=== PATIENT | male | born 1990 | race Caucasian/White ===

== ENCOUNTER 2017-09-30 18:27 | Emergency (ER) | payer OTHER ==
[2017-09-30] MEDS ORDERED: ValACYclovir (*) 1 GM TAB PO ONE (21:13)
[2017-09-30] MEDS ORDERED: Fluorescein Sodium TOPICAL* 1 MG TEST OPHTHALMIC ONE (21:14)
[2017-09-30] MEDS ORDERED: Tetracaine 0.5% OPTH.SOL 4 ML* 1 DROP BTL RIGHT EYE ONE (21:14)
[2017-09-30] MEDS ORDERED: Artificial Tears* 15 ML BTL RIGHT EYE ONE (21:15)
[2017-09-30] MEDS ORDERED: predniSONE TAB* 20 MG PO ONE (21:55)
[2017-09-30 22:00] LABS: ABS Basophils 0.1 10^3/ul (0-0.2); ABS Eosinophils 0.2 10^3/ul (0-0.6); ABS Lymphocytes 3.7 10^3/ul (1.0-4.8); ABS Monocytes 0.7 10^3/ul (0-0.8); ABS Neutrophils 4.2 10^3/ul (1.5-7.7); ABS Nucleated RBC 0 10^3/ul; Eosinophil % 2.4 % (0-6); Hematocrit 44 % (42-52); Hemoglobin 15.4 g/dl (14.0-18.0); Lymphocyte % 41.7 % (25-47); Mean Corpuscular HGB Conc 35 g/dl (31-36); Mean Corpuscular Hemoglobin 31 pg (27-31); Mean Corpuscular Volume 90 fL (80-94); Mean Platelet Volume 9 um3 (7.4-10.4); Nucleated Red Blood Cells % 0; Platelet Count 237 10^3/ul (150-450); Red Blood Count 4.92 10^6/ul (4.0-5.4); Red Cell Distribution Width 13 % (10.5-15); White Blood Count 8.9 10^3/ul (3.5-10.8)
[2017-09-30 22:11] LABS: EGFR Non-African American 92.8 (>60)
[2017-09-30 22:45] VITALS: BP 135/85
--- NOTE | 2017-09-30 23:39 | ED ---
Jim James Tecjoon, scribed for Tunde Champion MD on 09/30/17 at 2119 . Neurological HPI - HPI Summary HPI Summary: This patient is a 26 year old male presenting to [facility] accompanied by family with a chief complaint of right sided facial numbness since yesterday. Patient has right sided facial palsy, but has no other focal neurological deficits. Patient states that he has no pain. Symptoms aggravated by nothing. Symptoms alleviated by nothing. Patient additionally reports blurry vision in right eye, cough. Patient states that he looked up his symptoms and is worried about a stroke. - History of Current Complaint Chief Complaint: EDNeurologicalDeficit Stated Complaint: RT SIDE NUMBNESS Hx Obtained From: Patient Onset/Duration: Gradual Onset, Started days ago - 2, Still Present Timing: Constant Current Severity: Moderate Neurological Deficit Location: Facial - right sided Pain Intensity: 0 Pain Scale Used: 0-10 Numeric Character: Other: - cough, blurry vision in right eye - Allergy/Home Medications Allergies/Adverse Reactions: Allergies Allergy/AdvReac Type Severity Reaction Status Date / Time MS Codeine [Codeine] Allergy Abdominal Verified 12/17/16 14:10 Pain PMH/Surg Hx/FS Hx/Imm Hx Previously Healthy: Yes Endocrine/Hematology History: Denies: Hx Diabetes Cardiovascular History: Denies: Hx Hypertension, Hx Pacemaker/ICD History: Denies: Hx Renal Disease Sensory History: Denies: Hx Hearing Aid Psychiatric History: Denies: Hx Panic Disorder - Surgical History Surgery Procedure, Year, and Place: left knee REPAIR 2006 Infectious Disease History: No Infectious Disease History: Denies: Traveled Outside the [place] in Last 30 Days - Family History Known Family History: Negative: Hypertension - Social History Occupation: Employed Full-time Lives: With Family Alcohol Use: Occasionally Hx Substance Use: No Substance Use Type: Reports: None Hx Tobacco Use: Yes Smoking Status (MU): Light Every Day Tobacco Smoker Review of Systems Negative: Fever Positive: Blurred Vision Positive: Cough Neurological: Other - right sided facial weakness/numbness All Other Systems Reviewed And Are Negative: Yes Physical Exam - Summary Physical Exam Summary: Appearance: Well-appearing, Well-nourished Skin: Warm Eyes: No evidence of corneal abrasion or pseudodendritic appearance ENT: Normal Neck: Supple, nontender Respiratory: Clear to auscultation Cardiovascular: Normal S1, S2. No murmurs. Normal distal pulses in tibial and radial bilaterally. Abdomen: Soft, nontender Musculoskeletal: Normal, Strength/ROM Intact Neurological: A&Ox3. Paralysis of both upper and lower face, including forehead , eyelid, and mouth. No sensory abnormalities. No aphasia, no other obvious focal neuro deficits. Psychiatric: Normal Triage Information Reviewed: Yes Vital Signs On Initial Exam: Initial Vitals Temp Pulse Resp BP Pulse Ox 98 F 91 18 144/86 98 09/30/17 18:29 09/30/17 18:29 09/30/17 18:29 09/30/17 18:29 09/30/17 18:29 Vital Signs Reviewed: Yes Diagnostics - Vital Signs Vital Signs Temp Pulse Resp BP Pulse Ox 09/30/17 20:07 98.3 F 72 14 126/72 98 09/30/17 18:29 98 F 91 18 144/86 98 - Laboratory Lab Results: Lab Results 09/30/17 09/30/17 Range/Units 21:45 21:45 WBC 8.9 (3.5-10.8) 10^3/ul RBC 4.92 (4.0-5.4) 10^6/ul Hgb 15.4 (14.0-18.0) g/dl Hct 44 (42-52) % MCV 90 (80-94) fL MCH 31 (27-31) pg MCHC 35 (31-36) g/dl RDW 13 (10.5-15) % Plt Count 237 (150-450) 10^3/ul MPV 9 (7.4-10.4) um3 Neut % (Auto) 47.5 (38-83) % Lymph % (Auto) 41.7 (25-47) % [place] % (Auto) 7.8 (1-9) % Eos % (Auto) 2.4 (0-6) % Baso % (Auto) 0.6 (0-2) % Absolute Neuts (auto) 4.2 (1.5-7.7) 10^3/ul Absolute Lymphs (auto) 3.7 (1.0-4.8) 10^3/ul Absolute Monos (auto) 0.7 (0-0.8) 10^3/ul Absolute Eos (auto) 0.2 (0-0.6) 10^3/ul Absolute Basos (auto) 0.1 (0-0.2) 10^3/ul Absolute Nucleated RBC 0 10^3/ul Nucleated RBC % 0 Sodium 139 (133-145) mmol/L Potassium 4.0 (3.5-5.0) mmol/L Chloride 106 (101-111) mmol/L Carbon Dioxide 29 (22-32) mmol/L Anion Gap 4 (2-11) mmol/L BUN 17 (6-24) mg/dL Creatinine 0.97 (0.67-1.17) mg/dL Est GFR ( Amer) 119.4 (>60) Est GFR (Non-Af Amer) 92.8 (>60) BUN/Creatinine Ratio 17.5 (8-20) Glucose 100 (70-100) mg/dL Calcium 9.5 (8.6-10.3) mg/dL Total Bilirubin 0.30 (0.2-1.0) mg/dL AST 15 (13-39) U/L ALT 17 (7-52) U/L Alkaline Phosphatase 60 (34-104) U/L Total Protein 6.8 (6.4-8.9) g/dL Albumin 4.5 (3.2-5.2) g/dL Globulin 2.3 (2-4) g/dL Albumin/Globulin Ratio 2.0 (1-3) Result Diagrams: 09/30/17 21:45 09/30/17 21:45 Lab Statement: Any lab studies that have been ordered have been reviewed, and results considered in the medical decision making process. - EKG 2123 Cardiac Rate: NL EKG Rhythm: Sinus Rhythm EKG Interpretation: short IL(121), presence of delta wave in multiple leads consistent with WPW Re-Evaluation - Re-Evaluation First Eval Re-Evaluation Time: 22:08 Comment: We discussed EKG results with patient and informed him about WPW and its implications. Fluorescein test was performed and found no evidence of corneal abrasion. Course/Dx - Course Assessment/Plan: I had an extensive conversaton w patient about both his treatment for ibarra's and incidental finding of WPW on ekg. pt agrees to take meds as directed and to fu with plasterer helper promtly. Also instructed to return immediately for any wosening symptoms such as syncope, dizziness, chest pain, palpitations, or diaphoresis. Pt and family agree to and understands dc instructions. Also instructed to fu with neurologist immdidately if he notices no improvement in facial paralysis sxs within 1-2 days - Diagnoses Provider Diagnoses: Ibarra's palsy, WPW (Jugkl-Honbrduyj-Cidyv syndrome) - Physician Notifications Discussed Care Of Patient With: Kurtis Duarte Discharge - Discharge Plan Condition: Stable Disposition: HOME Prescriptions: predniSONE TAB* [Deltasone TAB*] 60 mg PO DAILY 7 Days #21 tab predniSONE TAB* [Deltasone TAB*] 40 mg PO DAILY 4 Days #6 tab ValACYclovir (*) [Valtrex 1 GM(*)] 1 gm PO TID #28 tab Patient Education Materials: Ibarra Palsy (ED), Qsxdt-Wquwesjxy-Vgmiw Syndrome ( ED) Forms: *Work Release Referrals: Noah Solorio MD [Primary Care Provider] - Kurtis Duarte MD [Medical Doctor] - Josselin Reed MD [Medical Doctor] - Additional Instructions: PLEASE MAKE AN APPOINTMENT FIRST THING IN THE MORNING TO BE SEEN BY A NEUROLOGIST WITHIN 2-3 DAYS IF NO IMPROVEMENT IN 48 HOURS PLEASE KEEP RIGHT EYE LUBRICATED AT ALL TIMES AND CLOSED WITH EYE PATCH DURING THE DAY PLEASE MAKE AN APPOINTMENT TO SEE A DEMO EVENT SPECIALIST WITHIN 1-3 DAYS PLEASE RETURN IMMEDIATELY TO THE ER IF YOU HAVE ANY WORSENING OR CONCERNING SYMPTOMS OR IF YOU HAVE ANY EPISODES OF PASSING OUT PLEASE MAKE AN APPOINTMENT TO BE SEEN BY YOUR PRIMARY CARE DOCTOR WITHIN 1 WEEK The documentation as recorded by the Jim hobson Tecjoon accurately reflects the service I personally performed and the decisions made by me, Tunde Champion MD.
== END 2017-09-30 22:44 | disposition home or self-care (01) ==
LOC: ED 18:27
DX: G51.0 Bell's palsy (principal); I45.6 Pre-excitation syndrome; Z88.5 Allergy status to narcotic agent
CPT/HCPCS: 36415; 80053; 85025; 86618; 93005; 99283; A9270-GY; J7512

== ENCOUNTER 2019-07-08 05:38 | Inpatient (IN) | payer OTHER ==
--- NOTE | 2019-07-08 06:17 | ED ---
Psychiatric Complaint - HPI Summary HPI Summary: This patient is a 28 year old M presenting to ED with a chief complaint of suicidal ideation since three days ago. Patient denies ever having SI before, but he has felt depressed before. He does not see anyone for his depression. Patient denies any medical history. Patient reports smoking tobacco and using alcohol, but he has not drank alcohol in the past 24 hours. Patient is a marijuana user. The patient rates the pain 0/10 in severity. Symptoms aggravated by nothing. Symptoms alleviated by nothing. Patient denies fever. - History Of Current Complaint Chief Complaint: EDSuicidal Time Seen by Provider: 07/08/19 06:06 Hx Obtained From: Patient Onset/Duration: Gradual Onset, Lasting Days - 3 days ago, Still Present Timing: Constant - Since 3 days ago Severity Initially: Moderate Severity Currently: Moderate Character: Depressed Aggravating Factor(s): Nothing Alleviating Factor(s): Nothing Associated Signs And Symptoms: Positive: Negative - Fever Has Suicidal: Reports: Thoughts - Allergies/Home Medications Allergies/Adverse Reactions: Allergies Allergy/AdvReac Type Severity Reaction Status Date / Time codeine Allergy Nausea And Verified 07/08/19 06:28 Vomiting Home Medications: Home Medications NK [No Home Medications Reported] 07/08/19 [History Confirmed 07/08/19] PMH/Surg Hx/FS Hx/Imm Hx Endocrine/Hematology History: Denies: Hx Diabetes Cardiovascular History: Denies: Hx Hypertension, Hx Pacemaker/ICD History: Denies: Hx Renal Disease Sensory History: Denies: Hx Hearing Aid Psychiatric History: Denies: Hx Panic Disorder - Surgical History Surgery Procedure, Year, and Place: left knee REPAIR 2006 Infectious Disease History: No Infectious Disease History: Denies: Traveled Outside the US in Last 30 Days - Family History Known Family History: Negative: Hypertension - Social History Alcohol Use: Occasionally Hx Substance Use: Yes Substance Use Type: Reports: Marijuana Hx Tobacco Use: Yes Smoking Status (MU): Light Every Day Tobacco Smoker Review of Systems - ROS Summary Review of Systems Summary: Home Medications Medication Instructions Recorded Confirmed Type NK [No Home Medications Reported] 07/08/19 07/08/19 History Negative: Fever Psychological: Other - SI All Other Systems Reviewed And Are Negative: Yes Physical Exam - Summary Physical Exam Summary: General: Well-developed, Well-nourished male. No acute distress. HEENT: Normocephalic, Atraumatic. Eyes: Conjuctiva normal, PERRL. Ears: TMs within normal limits. Nares: (-) discharge, (-) erythema. Oropharynx: Clear, mucous membranes moist, (-) exudates. Neck: Soft, FROM, (-) lymphadenopathy, (-) thyromegaly, (-) JVD. Cardiovascular: Normal sinus rhythm, (-) murmur. Lungs: Clear to auscultation bilaterally (-) wheezes, (-) rales, (-) rhonchi. Abdomen: Soft, non-tender, non-distended, (-) organomegaly, normal bowel sounds. Back: (-) CVA tenderness Extremities: No edema. Skin: Warm, dry, (-) rash. Neuro: Alert and oriented x3, no focal deficits. Psychiatric: Flat affect. Triage Information Reviewed: Yes Vital Signs On Initial Exam: Initial Vitals Temp Pulse Resp BP Pulse Ox 97.8 F 94 18 174/104 99 07/08/19 05:44 07/08/19 05:44 07/08/19 05:44 07/08/19 05:44 07/08/19 05:44 Vital Signs Reviewed: Yes Procedures - Sedation Patient Received Moderate/Deep Sedation with Procedure: No Diagnostics - Vital Signs Vital Signs Temp Pulse Resp BP Pulse Ox 07/08/19 05:44 97.8 F 94 18 174/104 99 - Laboratory Result Diagrams: 07/08/19 06:22 Lab Statement: Any lab studies that have been ordered have been reviewed, and results considered in the medical decision making process. Course/Dx - Course Course Of Treatment: 28-year-old male with suicidal ideation. Workup initiated. Patient signed out at change of shift. - Differential Dx/Clinical Impression Provider Diagnosis: Suicidal ideation Discharge ED - Sign-Out/Discharge Documenting (check all that apply): Sign-Out Patient Signing out patient TO: Callie Arzate - Discharge Plan Referrals: Osmin MENJIVAR,Noah Patel [Primary Care Provider] - - Attestation Statements Document Initiated by Scribe: Yes Documenting Scribe: Barrera Vallejo Provider For Whom Scribe is Documenting (Include Credential): Telma Brambila MD Scribe Attestation: Barrera James, scribed for Telma Brambila MD on 07/08/19 at 0638. Scribe Documentation Reviewed: Yes Provider Attestation: The documentation as recorded by the scribe, Barrera Vallejo accurately reflects the service I personally performed and the decisions made by me, Telma Brambila MD Status of Scribe Document: Viewed
[2019-07-08 06:24] LABS: Urine Appearance Cloudy; Urine Bilirubin Negative (Negative); Urine Blood Negative (Negative); Urine Color Amber; Urine Glucose Negative (Negative); Urine Ketones Negative (Negative); Urine Nitrite Negative (Negative); Urine Protein Negative (Negative); Urine Specific Gravity 1.017 (1.010-1.030); Urine Urobilinogen Negative (Negative)
[2019-07-08 06:29] LABS: ABS Eosinophils 0.1 10^3/ul (0-0.6); ABS Lymphocytes 3.4 10^3/ul (1.0-4.8); ABS Monocytes 0.7 10^3/ul (0-0.8); ABS Neutrophils 9.8 10^3/ul (1.5-7.7); Eosinophil % 0.8 %; Hematocrit 48 % (42-52); Hemoglobin 16.6 g/dL (14.0-18.0); Lymphocyte % 24.4 %; Mean Corpuscular HGB Conc 34 g/dL (31-36); Mean Corpuscular Hemoglobin 31 pg (27-31); Mean Corpuscular Volume 91 fL (80-94); Mean Platelet Volume 8.7 fL (7.4-10.4); Nucleated Red Blood Cells % 0.1; Platelet Count 242 10^3/uL (150-450); Red Cell Distribution Width 13 % (10-15)
[2019-07-08 06:45] LABS: Urine Benzodiazepine Screen None Detected (None Detect); Urine Opiates Screen None Detected (None Detect)
[2019-07-08 06:46] LABS: ALT 18 U/L (7-52); AST 16 U/L (13-39); Albumin 4.9 g/dL (3.2-5.2); Alkaline Phosphatase 62 U/L (34-104); Anion Gap 5 mmol/L (2-11); BUN/Creatinine Ratio 11.2 (8-20); Blood Urea Nitrogen 12 mg/dL (6-24); CO2 Carbon Dioxide 30 mmol/L (22-32); Calcium 9.9 mg/dL (8.6-10.3); Chloride 104 mmol/L (101-111); EGFR African American 98.9 (>60); EGFR Non-African American 81.7 (>60); Globulin 2.4 g/dL (2-4); Glucose 74 mg/dL (70-100); Potassium 3.9 mmol/L (3.5-5.0); Sodium 139 mmol/L (135-145); Total Protein 7.3 g/dL (6.4-8.9)
[2019-07-08 06:56] LABS: Acetaminophen < 15 mcg/mL; Alcohol < 10 mg/dL (<10); Salicylate < 2.50 mg/dL (<30)
[2019-07-08 07:11] LABS: TSH (Thyroid Stimulating Horm) 1.55 mcIU/mL (0.34-5.60)
--- NOTE | 2019-07-08 07:11 | ED ---
Progress - Progress Note Progress Note: The pt is sign out from Dr. Brambila at the 69907/08/2019 shift change pending MHE and disposition. Course/Dx - Course Course Of Treatment: 28-year-old male with suicidal ideation. Workup initiated. Patient signed out at change of shift. The pt is sign out from Dr. Brambila at the 0707/08/2019 shift change pending MHE and disposition. - Diagnoses Provider Diagnoses: Suicidal ideation, Major depressive disorder, single episode, unspecified - Provider Notifications Discussed Care Of Patient With: Lorenzo Cates Instructed by Provider To: Admit As Inpatient Discharge ED - Sign-Out/Discharge Documenting (check all that apply): Patient Departure - admit - Discharge Plan Condition: Stable Disposition: ADMITTED TO [facility] Referrals: Osmin MENJIVAR,Noah Paetl [Primary Care Provider] - - Billing Disposition and Condition Condition: STABLE Disposition: Admitted to [facility] - Attestation Statements Document Initiated by Scribe: Yes Documenting Scribe: Otto Salazar Provider For Whom Martina is Documenting (Include Credential): Callie Arzate MD Scribe Attestation: IOtto, scribed for Callie Arzate MD on 07/08/19 at 1340. Scribe Documentation Reviewed: Yes Provider Attestation: The documentation as recorded by the Otto hobson accurately reflects the service I personally performed and the decisions made by Callie perez MD Status of Scribe Document: Viewed
[2019-07-08] MEDS ORDERED: Nicotine* 4MG (FRUIT FLAVOR) GUM PO ONE (08:00)
[2019-07-08] MEDS ORDERED: hydrOXYzine HCL TAB* 50 MG PO ONE (08:23)
[2019-07-08 12:38] LABS: HIV 4th Generation Nonreactive (Nonreactive)
[2019-07-08] MEDS ORDERED: Acetaminophen TAB* 325 MG PO PRN (15:22)
[2019-07-08] MEDS ORDERED: Al Hydrox/Mg Hydrox/Simet LIQ* 30 ML UDC PO PRN (15:22)
[2019-07-08] MEDS ORDERED: Nicotine PATCH 21 MG/24 HR* PATCH ONE (16:18)
[2019-07-08] MEDS: Nicotine* 2MG (FRUIT FLAVOR) GUM PO PRN ×2 (16:21→18:46)
[2019-07-08] MEDS ORDERED: Nicotine PATCH 21 MG/24 HR* PATCH TRANSDERM PRN (17:00)
[2019-07-08] MEDS ORDERED: Nicotine Patch Removal NOTE PATCH OFF SCH (21:00)
[2019-07-09] MEDS ORDERED: Vitamin THERAPEUTIC TAB PO SCH (09:00)
[2019-07-09] MEDS: Nicotine* 2MG (FRUIT FLAVOR) GUM PO PRN (09:05)
[2019-07-09 11:28] LABS: Cholesterol 129 mg/dL; HDL Cholesterol 34.6 mg/dL; LDL Cholesterol 68 mg/dL; Triglycerides 130 mg/dL
[2019-07-09] MEDS ORDERED: Ondansetron TAB* 4 MG PO PRN (11:35)
[2019-07-09] MEDS ORDERED: Escitalopram * 10 MG TAB PO SCH (12:00)
[2019-07-09 12:41] VITALS: BP 121/71
--- NOTE | 2019-07-09 13:46 | HP ---
HISTORY AND PHYSICAL: DATE OF ADMISSION: 07/08/19 PROVIDER: Carolina Burnett NP in Psychiatry. SUPERVISING PHYSICIAN: Martín Schwartz MD * (DICTATED BY CAROLINA BURNETT NP ) JUSTIFICATION FOR ADMISSION: The patient is in need of 24-hour supervision and care secondary to suicidal ideation. CHIEF COMPLAINT: "There were mistakes on my part... I guess the found out something... [place]... People were bashing me." HISTORY OF PRESENT ILLNESS: The patient is a 28-year-old white male with a history of anger and depression who arrives brought in by car and is here on a voluntary status following an episode where his found out something about an affair that has been going on for 3 years with her best friend. He is evasive, stating that there are things he does not want to get into, but it all boils down to a fear of losing her and his 4 children that he has with her. He states "I became weak" referring to the fact that he feels like he is "taking the easy way out" for getting rid of the feeling that people are bashing him. He says that he has had a lot of time to think while he is here, however, and now he can see the bigger picture which does not include suicide. He states that the reason he has this affair was an "attention thing." He says , "if I knew then what I know now" that things would be different, if he could erase the last 3 years he says he would and he would just talk to his about what he needed from her. At this point, his suicidal thoughts have ended but they were present yesterday. His appetite is disrupted, he cannot concentrate, his energy is reduced, he is sleeping a lot now. He feels extraordinary guilt. He is not interested in anything other than repairing his relationship if that is possible. PAST PSYCHIATRIC HISTORY: He states he has been depressed in the past, it comes and goes, but "I am angry all the time" he says. He states he is angry about work stress, not getting enough attention. His home life is stressful as well. He has never before engaged in suicidal behaviors although he has had suicidal thoughts in the past. He has access to weapons but not in his home. He has never taken psychiatric medications before; he has never been in therapy. PAST MEDICAL HISTORY: He sees Dr. Solorio in [place], [place]. He has not seen him in quite some time; he says he has not needed to. FAMILY HISTORY: There is a history of a cousin who suicided by hanging himself in 2000. SUBSTANCE ABUSE: He does use cannabis regularly to "calm down," but he states it is not to excess. He smokes 2-1/2 packs of cigarettes a day. He was shocked to realize how much that was actually costing him but he did not seem to be interested in quitting even when I offered help with that. He drinks alcohol very rarely. SOCIAL HISTORY: He lives in [place], [place] with his and 4 of his children. His middle child is with from another mother and she lives with her mother. The children are 9, 8, 6, 4, and 2. He is to a woman named Allison. He is employed at [employer]. In this argument, she stated to him by text that they are now and he can go do what he wants. He states that he wants to be with her and he wants her back. REVIEW OF SYSTEMS: The patient reports feeling fatigued. He denies shortness of breath, heat or cold intolerance, chest pain, or abdominal pain. He denies neurological symptoms. He denies fevers or changes in weight. PHYSICAL EXAMINATION GENERAL: Well-developed, well-nourished male in no acute distress. VITAL SIGNS: On 07/08/19 at 1539, temperature was 98, pulse 60, respirations 16 , O2 sat on room air 95, blood pressure 123/77. HEENT: Normocephalic, atraumatic. Eyes: Conjunctivae normal. PERRL. Ears: TMs within normal limits. Nares: No discharge, no erythema. Oropharynx clear. Mucous membranes moist, no exudates. NECK: Soft, full range of motion. No lymphadenopathy. No thyromegaly. No JVD. CARDIOVASCULAR: Normal sinus rhythm. No murmur. LUNGS: Clear to auscultation bilaterally. No wheezes, no rales, no rhonchi. ABDOMEN: Soft, nontender, and nondistended. No organomegaly. Normal bowel sounds. BACK: No CVA tenderness. EXTREMITIES: No edema. SKIN: Warm and dry. No rash. NEURO: Alert and oriented x4. No focal deficits. LABORATORY DATA: Most data are within normal limits; exceptions include white blood cells high at 14 and absolute neutrophils high at 9.8. Toxicology screen is positive for cannabinoids. It should be noted that his HIV 1 and 2 screen is nonreactive. MENTAL STATUS EXAM: Santana is a 5 feet 10, and 170-pound man with red hair and a red nolan. He is wearing a blanket wrapped around him. He has tattoos on his arms. He sits quite still. He is calm and cooperative, although evasive at times. His speech is normal rate, tone, and volume. He is dysthymic. He has a restricted affect. His thought processes are sequential and normal. His thought content is free of delusions. He is not homicidal, he is not suicidal although he was when he arrived. He is not experiencing hallucinations. His insight is good. His judgment is fair. He is alert and oriented x4. DIAGNOSIS: Depressive disorder, not otherwise specified. IMPRESSION: Santana is a 28-year-old man who comes to the hospital with suicidal ideation following being found out by his that he is engaged in a 3-year affair with her best friend. PLAN/RECOMMENDATIONS: The patient is admitted to the adult behavior health unit and placed on q.15-minute checks for his own safety. He is encouraged to participate in supportive milieu, individual and group therapies. Estimated length of stay is 1 to 3 days. We will titrate medications including starting Lexapro to efficacy and monitor for mood and thought content. Discharge planning will include family involvement and outpatient providers. CAROLINA BURNETT, AGUILA [id number]/[facility] #: [id number] ELISABETH
--- NOTE | 2019-07-10 21:04 | DS ---
DISCHARGE SUMMARY: DATE OF ADMISSION: 07/08/19 DATE OF DISCHARGE: 07/09/19 PROVIDER: Carolina Burnett NP in Psychiatry. SUPERVISING PHYSICIAN: Dr. Martín Schwartz.* (DICTATED BY CAROLINA BURNETT NP) DIAGNOSIS: Adjustment disorder, rule out depressive disorder, not otherwise specified. CONDITION AT THE TIME OF DISCHARGE: Improved, psychiatrically cleared, stable. Participated in some groups and was social with peers. He is agreeable to discharge. He had done well here psychiatrically. He tolerated new meds. He will be attending [facility]. MENTAL STATUS EXAM: At the time of discharge, Santana is calm, cooperative and makes good eye contact. He is alert and oriented x4. His grooming is good. His speech pace is normal. His thought processes are logical. He is not psychotic or delusional. He denies AH, VH, SI, and HI. Insight and judgment are fair to good. He is willing to follow up and he is urged to see a therapist. DISCHARGE INSTRUCTIONS TO THE PATIENT: A. Medications: Lexapro 10 mg daily. B. Diet is regular. C. Activities as tolerated. He has declined a referral to the [facility] Smokers' Quitline at this time. If he decides to access this free service in the future, he can contact the Quitline toll free at [phone]. There are no studies pending at the time of discharge. D. Followup care: He has an appointment with [facility], which will be communicated to him by phone due to them being closed on 07/09/19 , his day of discharge. He also is advised to follow up with PCP Noah Solorio MD for any healthcare needs he might have. E. Disposition: He is being discharged to his home. F. Substance abuse followup is not indicated. HOSPITAL COURSE: Part A: Chief complaint: "There were mistakes on my part... I guess the found out something... [place]... People were bashing me." The patient is a 28-year-old white male with a history of anger and depression who arrives brought in by car and is here on a voluntary status following an episode where his found out something about an affair that has been going on for 3 years with her best friend. He is evasive stating that there are things he does not want to get into, but it all boils down to a fear of losing her and his 4 children that he has with her. He states "I became weak " referring to the fact that he feels like he is "taking the easy way out" for getting rid of the feeling that people are bashing him by way of suicide. He says that he has had a lot of time to think while he is here, however, and now he can see the bigger picture which does not include suicide. He states that the reason he has this affair was an "attention thing." He says , "if I knew then what I know now" that things would be different, if he could erase the last 3 years he says he would and he would just talk to his about what he needed from her. At this point, his suicidal thoughts have ended , but they were present yesterday. His appetite is disrupted, he cannot concentrate, his energy is reduced, he is sleeping a lot now. He feels extraordinary guilt. He is not interested in anything other than repairing his relationship if that is possible. Part B: Psychiatric treatment was rendered. Santana was admitted to the adult behavioral unit and placed on 15-minute checks for safety. He did well on the unit and went to groups. He interacted with peers well. He tolerated the addition of Lexapro and did not require any additional medications such as Zofran to make the start of Lexapro tolerable. When I suggested that we met with his , he did not think that was possible, as he did not think she would come in to see him. He is motivated to repair his relationship and he seems willing to do anythin;, however, this was not fully explored, as he did not allow that he would speak to us. No consults were entered for Santana. He is doing better. He states that having time to think about what has happened, what he has done and what his has asked of him, has made it clear to him that he needs to look at a larger view of his life and that suicide is no longer an option if he wants to be present for his family. In addition, he had a cousin who suicided and he realizes that the fallout from suicide affects the entire family and the grief never stops. He is much improved over his admission when he was suicidal. He is no longer interested in ending his life. He recognizes that some of his anger could be helped by taking medications and getting therapy. Further, it is expected that his life will take adjusting to and therapy would be very helpful. He states he will "make time for it." He is future oriented and is motivated to change his life. CAROLINA BURNETT, AGUILA [id number]/[facility] #: [id number] ELISABETH
== END 2019-07-09 17:15 | disposition home or self-care (01) | DRG 754 ==
LOC: ED 05:38 → BSU 13:00
PROVIDERS: ADMIT Psychiatry & Neurology Psychiatry; ATTEND Psychiatry & Neurology Psychiatry
DX: F32.9 Major depressive disorder, single episode, unspecified (principal); R45.851 Suicidal ideations; F17.210 Nicotine dependence, cigarettes, uncomplicated; Z81.8 Family history of other mental and behavioral disorders
CPT/HCPCS: 36415; 80053; 80061; 80307; 80320; 80329; 81003; 83036; 84443; 85025; 87389; 99238; 99284; A9270-GY; G0480